=== PATIENT | male | born 1960 | race Caucasian/White ===

== ENCOUNTER 2016-06-08 20:56 | Emergency (ER) | payer BC ==
[~2016-06-08] VITALS: Ht 165.1 cm; Wt 61.2 kg
[2016-06-08] MEDS ORDERED: OXYCODONE HCL30 MG PO (21:21)
[2016-06-08] MEDS ORDERED: AUGMENTIN 875875 MG PO (22:33)
== END 2016-06-08 23:03 | disposition home or self-care (01) ==
LOC: ED 20:56
DX: S61.412A Laceration without foreign body of left hand, initial encounter (principal); F17.200 Nicotine dependence, unspecified, uncomplicated; Z90.49 Acquired absence of other specified parts of digestive tract; W54.0XXA Bitten by dog, initial encounter; Y93.89 Activity, other specified; Y92.9 Unspecified place or not applicable; Y99.9 Unspecified external cause status

== ENCOUNTER 2017-09-30 17:45 | Emergency (ER) | payer BC ==
[~2017-09-30] VITALS: Wt 71.2 kg
[~2017-09-30 17:45] MED LIST: AUGMENTIN 875875 MG PO; OXYCODONE HCL30 MG PO
[2017-09-30] MEDS ORDERED: PREDNISONE10 MG PO (18:04)
[2017-09-30] MEDS ORDERED: CHLORZOXAZONE500 M2 PO (18:04)
== END 2017-09-30 18:41 | disposition home or self-care (01) ==
LOC: ED 17:45
DX: G89.29 Other chronic pain (principal); M54.42 Lumbago with sciatica, left side; R03.0 Elevated blood-pressure reading, without diagnosis of hypertension

== ENCOUNTER 2018-04-10 23:18 | Emergency (ER) | payer BC ==
[~2018-04-10] VITALS: Ht 165.1 cm; Wt 68.0 kg
[~2018-04-10 23:18] MED LIST changes: +CHLORZOXAZONE500 M2 PO; +PREDNISONE10 MG PO
[2018-04-10] MEDS ORDERED: Motrin,Rufen800 MG PO (23:59)
[2018-04-10] MEDS ORDERED: CEFADROXIL500 M1 PO (23:59)
== END 2018-04-11 00:02 | disposition home or self-care (01) ==
LOC: ED 23:18
DX: S01.21XA Laceration without foreign body of nose, initial encounter (principal); F17.200 Nicotine dependence, unspecified, uncomplicated; Y04.0XXA Assault by unarmed brawl or fight, initial encounter; Y93.89 Activity, other specified; Y92.89 Other specified places as the place of occurrence of the external cause; Y99.8 Other external cause status

== ENCOUNTER 2019-06-03 17:08 | Emergency (ER) | payer BC ==
[~2019-06-03] VITALS: Wt 63.5 kg
[~2019-06-03 17:08] MED LIST changes: +CEFADROXIL500 M1 PO; +Motrin,Rufen800 MG PO
[2019-06-03] MEDS ORDERED: SEPTDS PO (17:38)
== END 2019-06-03 17:52 | disposition home or self-care (01) ==
LOC: ED 17:08
DX: L03.211 Cellulitis of face (principal)

== ENCOUNTER 2023-11-06 08:34 | Emergency (ER) | payer BC ==
[~2023-11-06] VITALS: Ht 165.1 cm; Wt 72.6 kg
[~2023-11-06 08:34] MED LIST changes: +SEPTDS PO
[2023-11-06 09:08] LABS: BILIRUBIN Negative (Negative); BLOOD Negative (Negative); CLARITY Clear (Clear); COLOR Yellow (Yellow); GLUCOSE Negative (Negative); KETONE Trace (Negative); LEUKO ESTERASE Negative (Negative); NITRITE Negative (Negative); PH 5.5 (4.5-8.0)
[2023-11-06 09:35] LABS: CALCIUM OXALATE CRYSTALS Trace
[2023-11-06 09:36] LABS: MUCOUS TRACE
[2023-11-06 09:49] LABS: BASO # 0.1 10*3/uL (0.0-0.1); BASO % 0.7 % (0.0-1.0); EOS # 0.2 10*3/uL (0.0-0.4); EOS % 1.7 % (1.0-4.0); HEMATOCRIT 45.3 % (42.0-52.0); LYMPH # 2.2 10*3/uL (1.3-4.4); LYMPH % 25.6 % (27.0-41.0); MEAN CELL VOLUME 90.1 fl (80.0-94.0); MEAN CORPUSCULAR HGB 29.8 pg (27.0-31.0); MEAN CORPUSCULAR HGB CONC 33.1 g/dl (33.0-37.0); MONO # 0.7 10*3/uL (0.1-1.0); NEUT # 5.5 10*3/uL (2.3-7.9); NEUT % 63.7 % (47.0-73.0); PLATELET COUNT AUTOMATED 191 10*3/uL (130-400); RED BLOOD COUNT 5.03 10*6/uL (4.50-5.90); RED CELL DISTRI WIDTH 12.5 % (0-14.5); WHITE BLOOD COUNT 8.6 10*3/uL (4.8-10.8)
[2023-11-06 10:11] LABS: BUN 12 mg/dl (9-23); CHLORIDE 107 mmol/L (98-107); POTASSIUM 4.1 mmol/L (3.4-5.1)
[2023-11-06] MEDS ORDERED: NITROFURANTOIN100 M3 PO ×2 (11:55→16:40)
== END 2023-11-06 12:12 | disposition home or self-care (01) ==
LOC: ED 08:34
PROVIDERS: Emergency Medicine
DX: R39.15 Urgency of urination (principal); R30.9 Painful micturition, unspecified; F17.200 Nicotine dependence, unspecified, uncomplicated; Z90.49 Acquired absence of other specified parts of digestive tract

== ENCOUNTER → 2023-11-27 | Outpatient (CLI) | payer BC ==
[~2023-11-27] MED LIST changes: +IOHEXOL 350 MG/ML 100 ML VIAL IV ONE; +NITROFURANTOIN100 M3 PO
[2023-11-27 14:23] LABS: BASO # 0.1 10*3/uL (0.0-0.1); BASO % 0.7 % (0.0-1.0); EOS # 0.1 10*3/uL (0.0-0.4); EOS % 1.6 % (1.0-4.0); HEMATOCRIT 44.4 % (42.0-52.0); LYMPH # 2.1 10*3/uL (1.3-4.4); LYMPH % 29.2 % (27.0-41.0); MEAN CELL VOLUME 88.6 fl (80.0-94.0); MEAN CORPUSCULAR HGB 29.3 pg (27.0-31.0); MEAN CORPUSCULAR HGB CONC 33.1 g/dl (33.0-37.0); MEAN PLATELET VOLUME 10.2 fl (9.6-12.3); MONO # 0.6 10*3/uL (0.1-1.0); MONO % 7.8 % (3.0-9.0); NEUT # 4.3 10*3/uL (2.3-7.9); NEUT % 60.3 % (47.0-73.0); PLATELET COUNT AUTOMATED 193 10*3/uL (130-400); RED BLOOD COUNT 5.01 10*6/uL (4.50-5.90); RED CELL DISTRI WIDTH 12.2 % (0-14.5); WHITE BLOOD COUNT 7.1 10*3/uL (4.8-10.8)
[2023-11-27 14:41] LABS: BILIRUBIN Negative (Negative); BLOOD Negative (Negative); CLARITY Clear (Clear); COLOR Dark Yellow (Yellow); GLUCOSE Negative (Negative); KETONE Negative (Negative); LEUKO ESTERASE Negative (Negative); NITRITE Positive (Negative); SPECIFIC GRAVITY >= 1.030 (1.001-1.030)
[2023-11-27 14:57] LABS: ALKALINE PHOSPHATASE 92 U/L (46-116); BUN 10 mg/dl (9-23); CHLORIDE 105 mmol/L (98-107); POTASSIUM 3.7 mmol/L (3.4-5.1); SGPT/ALT 10 U/L (5-49); TOTAL PROTEIN 6.7 gm/dL (6.0-8.0)
[2023-11-27 15:17] LABS: BACTERIA TRACE; RBC 0-2 rbc/hpf (0-2); WBC 0-2 wbc/hpf (0-5)
== END | disposition home or self-care (01) ==
LOC: LAB 12:57 → CT 13:00
PROVIDERS: ATTEND Urology
DX: N28.1 Cyst of kidney, acquired (principal); D40.0 Neoplasm of uncertain behavior of prostate; N39.0 Urinary tract infection, site not specified; R53.83 Other fatigue

== ENCOUNTER 2025-05-13 22:47 | Emergency (ER) | payer BC ==
[~2025-05-13] VITALS: Ht 175.2 cm; Wt 67.8 kg
[~2025-05-13 22:47] MED LIST changes: -IOHEXOL 350 MG/ML 100 ML VIAL IV ONE
[2025-05-13] MEDS ORDERED: MEKTOVI15 MG PO (22:58)
[2025-05-13] MEDS ORDERED: BRAFTOVI75 MG PO (22:58)
[2025-05-13] MEDS ORDERED: BUPRENORPHINE-1 EAC1 SL (22:58)
[2025-05-13] MEDS ORDERED: IOHEXOL 300 MG/ML 100 ML VIAL IV ONE (23:15)
[2025-05-13] MEDS ORDERED: SODIUM CHLORIDE 0.9% 1,000 ML IV ONE (23:35)
[2025-05-13 23:48] LABS: BASO # 0.1 10*3/uL (0.0-0.1); BASO % 0.3 % (0.0-1.0); EOS # 0.0 10*3/uL (0.0-0.4); EOS % 0.1 % (1.0-4.0); MEAN CELL VOLUME 84.6 fl (80.0-94.0); MEAN CORPUSCULAR HGB 27.9 pg (27.0-31.0); MEAN PLATELET VOLUME 10.7 fl (9.6-12.3); MONO # 1.0 10*3/uL (0.1-1.0); MONO % 7.2 % (3.0-9.0); NEUT # 11.7 10*3/uL (2.3-7.9); NEUT % 81.3 % (47.0-73.0); NUCLEATED RED BLOOD CELL 0.0 % (0.0-0.0); NUCLEATED RED BLOOD CELL 0.0 10*3/uL (0.0-0.0); PLATELET COUNT AUTOMATED 254 10*3/uL (130-400); RED CELL DISTRI WIDTH 12.8 % (0-14.5)
[2025-05-14 00:09] LABS: BUN 20 mg/dl (9-23); SGPT/ALT 34 U/L (5-49)
[2025-05-14 00:37] LABS: ACT PARTIAL THROMBO TIME 26.4 SECONDS (20.0-32.1)
[2025-05-14] MEDS ORDERED: LORazepam 2 MG/ML VIAL IV ONE (00:55)
[2025-05-14 01:11] LABS: BILIRUBIN Negative (Negative); BLOOD Trace-Lysed (Negative); CLARITY Clear (Clear); COLOR Yellow (Yellow); KETONE 2+ (Negative); LEUKO ESTERASE Negative (Negative); NITRITE Negative (Negative); PH 5.0 (4.5-8.0); SPECIFIC GRAVITY 1.020 (1.001-1.030); UROBILINOGEN 1.0 E.U./dl (0.0-1.0)
[2025-05-14 01:18] LABS: URINE AMPHETAMINES Negative (1000ng/ml); URINE BARBITURATES Negative (200ng/ml); URINE BENZODIAZEPINES Negative (200ng/ml); URINE CANNABINOIDS (THC) Negative (50ng/ml); URINE COCAINE Negative (300ng/ml); URINE METHADONE Negative (300ng/ml); URINE OPIATES Negative (300ng/ml); URINE PHENCYCLIDINE Negative (25ng/ml)
[2025-05-14 01:21] LABS: BACTERIA 1+; MUCOUS TRACE
[2025-05-14] MEDS ORDERED: Dexamethasone Sodium Phospha 20 MG/5 ML VIAL IV ONE (02:00)
[2025-05-14] MEDS ORDERED: LORazepam 2 MG/ML VIAL IV PRN (07:30)
== END 2025-05-14 14:19 | disposition home or self-care (01) ==
LOC: ED 22:47
PROVIDERS: Internal Medicine
DX: Z51.5 Encounter for palliative care (principal); R41.82 Altered mental status, unspecified; Z79.01 Long term (current) use of anticoagulants; Z79.899 Other long term (current) drug therapy